=== PATIENT | female | born 1990 | race African-American/Black ===

== ENCOUNTER 2018-08-07 15:41 | Emergency (ER) | payer OTHER ==
[2018-08-07] MEDS ORDERED: Ondansetron PF 4 MG/2 ML Vial ONE (16:04)
[2018-08-07 16:20] LABS: #Basophils 0.1 thou/uL (0.0-0.2); #Eosinphils 0.2 thou/uL (0.0-0.7); #Lymphocytes 2.6 thou/uL (1.20-3.40); #Monocytes 0.5 thou/uL (0.11-0.59); #Neutrophils 4.8 thou/uL (1.40-6.50); %Basophils 1.2 % (0.0-1.0); %Lymphocytes 31.6 % (21.0-51.0); %Neutrophils 58.3 % (42.0-75.0); Hemoglobin 10.8 g/dL (12.0-16.0); Mean Corpuscular HGB CONC 31.9 g/dL (32.0-36.0); Mean Corpuscular Volume 75.2 fL (78.0-98.0); Mean Platelet Volume 9.2 fL (7.4-10.4); Platelet Count 275 thou/uL (130-400); RBC Distribution Width 16.3 % (11.5-14.5); Red Blood Cell (RBC) Count 4.52 mill/uL (4.20-5.40); White Blood Cell (WBC) Count 8.2 thou/uL (4.8-10.8)
[2018-08-07 16:27] LABS: BHCG - Serum POSITIVE (NEGATIVE); Pregs Control Background? CLEAR/WHITE (CLR/WHITE); Pregs Control Bar Appear? YES (CONTROL BAR)
[2018-08-07 16:53] LABS: Bilirubin Negative (Negative); Blood, Urine Negative (Negative); Clarity CLEAR (Clear); Glucose, Urine (Dipstick) Negative (Negative); Leukocyte Moderate (Negative); Nitrite Negative (Negative); Protein, Urine (Dipstick) Negative (Neg-Trace); Specific Gravity, Urine 1.022 (1.002-1.036)
[2018-08-07 16:55] LABS: Bacteria/HPF None Seen HPF (None Seen); Hyaline Casts/LPF 0-3 HYALINE CAST LPF (0-3 Hyaline); Pathc Cast-AUWi Flag 0.14 (0-2.49); Squamous Epithelial 0-3 HPF (0-3)
--- NOTE | 2018-08-07 17:14 | ULT ---
OBSTETRIC SONOGRAM TRANSVAGINAL IMAGING: HISTORY: Early . Pelvic pain. FINDINGS: The gestational sac within the endometrial cavity contains a small yolk sac and pole. Heart mo tion at 128 beats per minute. Measurements correlate with 6 weeks' 4 days' gestational age. No free fluid within the pelvis. Neither ovary is visualized with transabdominal or transvaginal imaging. No solid or cystic masses. No free fluid evident. IMPRESSION: Single viable intrauterine gestation. Estimated gestational age 6 weeks 4 days. No significant abno rmalities demonstrated. POS: [facility]
== END 2018-08-07 17:53 | disposition home or self-care (01) ==
LOC: ERS 15:41
DX: O21.0 Mild hyperemesis gravidarum (principal); O23.41 Unspecified infection of urinary tract in pregnancy, first trimester; F32.9 Major depressive disorder, single episode, unspecified; Z3A.01 Less than 8 weeks gestation of pregnancy
CPT/HCPCS: 36415; 76856; 81003; 81015; 84702; 84703; 85025; 86900; 86901; 87086; 96361; 96374; J2405

== ENCOUNTER 2018-09-14 10:24 | Emergency (ER) | payer OTHER ==
[2018-09-14] MEDS ORDERED: Acetaminophen 500 MG TAB ONE (11:07)
[2018-09-14] MEDS ORDERED: Ondansetron ODT 4 MG TAB ONE (11:07)
== END 2018-09-14 11:16 | disposition home or self-care (01) ==
LOC: ERS 10:24
DX: O9A.211 Injury, poisoning and certain other consequences of external causes complicating pregnancy, first trimester (principal); S39.012A Strain of muscle, fascia and tendon of lower back, initial encounter; O99.89 Other specified diseases and conditions complicating pregnancy, childbirth and the puerperium; R51 Headache; O99.341 Other mental disorders complicating pregnancy, first trimester; F32.9 Major depressive disorder, single episode, unspecified; Z3A.12 12 weeks gestation of pregnancy
CPT/HCPCS: 99283; Q0162

== ENCOUNTER 2018-11-06 13:46 | Outpatient (CLI) | payer OTHER ==
--- NOTE | 2018-11-06 15:01 | ULT ---
FUS OB Complete STANDARD History: [Anatomy, 009.42 supervision of normal with grand multiparity in second trimester] Comparison: Pelvic ultrasound thousand 18 Findings: Real-time grayscale color Doppler and spectral analysis of the gravid uterus was performed transabdominal approach. Single viable intrauterine with average ultrasound age 21 week 1 day with estimated date of delivery March 25, 2019. Estimated weight is 15 ounces, 98th percentile. Cervix is closed and measures 5 cm. Biometry: Biparietal diameter: 4.9 cm, 20 week 6 day Head circumference: 18.48 cm 20 weeks 6 day Abdominal circumference: 16.7 cm 21 week 6 day Femur length: 3.48 cm 21 weeks 0 day Amniotic fluid index: 16 cm. The placenta is anterior and the presentation is variable. No placenta previa. Anatomy: Head, cerebellum, cisterna magna, lateral ventricles, four-chamber heart, stomach, kidneys, cord inse rtion, bladder, spine, lips/nose, upper extremities, lower extremities, three-vessel cord are all nor mal. Impression: Normal single viable intrauterine .
== END 2018-11-06 13:47 | disposition home or self-care (01) ==
LOC: BICULT 13:46
PROVIDERS: ATTEND Family Medicine
DX: O09.42 Supervision of pregnancy with grand multiparity, second trimester (principal)
CPT/HCPCS: 76805

== ENCOUNTER 2019-02-24 23:08 | Day surgery (SDC) | payer OTHER ==
[2019-02-24 23:43] VITALS: BMI 43.4
--- NOTE | 2019-02-25 00:30 | PDOC.FPROB ---
FMR OB H&P: HPI - History of Present Illness Chief Complaint: contrations History of Present Illness: 28 yo @36.1wks presents with contractions off and on for 3 weeks, but they became more frequent and painful since 2200 last night. She wasn't timing them but thinks they were every 15 minutes. She denies LOF, VB, discharge, dysuria. She feels the baby move. FMR OB H&P: History - Past Medical History PMH: borderline DM - OB History OB History: 4 prior term NSVDs 9 lbs 7 ounces 9 lbs 2 ounces 8 lbs 2 ounces 7 lbs 13 ounces - [employer] History [employer] History: hx of chlamydia 1T, treated - Surgical History Sx History: right hand surgery - Social History Social History: denies smoking, alcohol, drug use - Family History Family History: father-htn FMR OB H&P: Medications - Current Home Medications: Medication Instructions Recorded Confirmed Type Pnv No.95/Ferrous Fum/Folic AC 1 tablet PO DAILY 02/24/19 02/24/19 History [Prenavite Tablet] Allergies/Adverse Reactions: Allergies Allergy/AdvReac Type Severity Reaction Status Date / Time No Known Allergies Allergy Unverified 02/24/19 23:39 FMR OB H&P: ROS - Review of Systems General: denies: fever/chills, weight/appetite/sleep changes ENT: denies: nasal congestion, rhinorrhea Cardiovascular: denies: chest pain, palpitation, edema Gastrointestinal: reports: abdominal pain (contractions). denies: indigestion Genitourinary (Female): reports: contractions. denies: incontinence, dysuria, hematuria, polyuria, vaginal discharge, vaginal pain, vaginal bleeding, vaginal pressure Musculoskeletal: denies: pain, stiffness Neurologic: denies: numbness, syncope Integumentary: denies: itching, rash Psychological: denies: depression, anxiety FMR OB H&P: Vital Signs - Maternal Vital signs: BP: 124/85 - Heart Tones Baseline: 130 Variability: moderate Acceleration: present Deceleration: absent Category: category 1 [place] contractions every: 2-10 FMR OB H&P: Physical Exam - Physical Exam General: NAD, awake, alert and oriented HEENT: normocephalic and atraumatic, PERRLA Heart: RRR, normal S1/S2 General: CTAB, no respiratory distress Abdomen: soft, gravid - Pelvic Exam SVE: 350/high FMR OB H&P: A/P - Problem List (1) Third trimester Current Visit: Yes Status: Acute Code(s): Z34.93 - ENCNTR FOR SUPRVSN OF NORMAL PREG, UNSP, THIRD TRIMESTER (2) Irregular contractions Current Visit: Yes Status: Acute Code(s): O62.2 - OTHER UTERINE INERTIA Discussion: Date/Time: 02/25/19 0029 28 yo @36.1wks presents with contractions, rule out labor. #sIUP, with contractions-will monitor via NST for 2 hours and recheck for cervical change. Contraction patter irregular at this time. No prior history of labor. Pt does not need magnesium and not ruptured. Hx of GBS + and , so if we admit this pt, we will provide GBS prophylaxis. Will reassess for steroids if pt develops painful contractions with cervical change. This H&P was discussed with Dr. Kumar and who agrees with the above documentation and plan. Addendum - Attending - Attending Attestation Date/Time: 02/25/19 0116 I personally evaluated the patient and discussed the management with Dr. Jaimes. I agree with the History, Examination, Assessment and Plan documented above.
== END 2019-02-25 04:04 | disposition home or self-care (01) ==
LOC: L&D/OP 23:08
PROVIDERS: ATTEND Family Medicine
DX: O47.03 False labor before 37 completed weeks of gestation, third trimester (principal); O99.89 Other specified diseases and conditions complicating pregnancy, childbirth and the puerperium; R73.03 Prediabetes; O99.820 Streptococcus B carrier state complicating pregnancy; Z3A.36 36 weeks gestation of pregnancy
CPT/HCPCS: 99283

== ENCOUNTER 2019-03-01 20:26 | Day surgery (SDC) | payer OTHER ==
[2019-03-01 21:13] VITALS: BMI 42.7
[2019-03-01] MEDS ORDERED: hydrALAZINE 20 MG/ML VIAL SLOW IVP PRN (21:49)
[2019-03-01] MEDS ORDERED: Betamet Acet/Betamet Na Ph 30 MG/5 ML VIAL ONE (21:57)
[2019-03-01] MEDS ORDERED: Betamet Acet/Betamet Na Ph 30 MG/5 ML VIAL IM SCH (22:00)
[2019-03-02] MEDS ORDERED: Lactated Ringer's 1,000 ML IV SCH (01:45)
[2019-03-02] MEDS ORDERED: Dextrose 5%-Lactated Ringers 1,000 ML IV SCH ×2 (01:45)
--- NOTE | 2019-03-02 07:51 | ULT ---
ULTRASOUND BIOPHYSICAL PROFILE: HISTORY: Nonreactive NST. distress FINDINGS: A single live intrauterine gestation is seen with a heart rate of 133 bpm. The placenta is ante riorly located to the left without evidence of placenta previa. position is vertex. [place] measures 11.3 cm. Cervical length measures 4.2 cm. biometry: tone: 2 breathin movements: 2 Amniotic fluid: 2 IMPRESSION: The ultrasound biophysical profile score is 8 out of 8.
--- NOTE | 2019-03-02 09:56 | PRG ---
DATE OF SERVICE: 03/01/2019 PRIMARY OB: Dr. Kristopher Sampson. CHIEF COMPLAINT: Uterine contractions. HISTORY OF PRESENT ILLNESS: The patient is a 28-year-old, G6, P4 female with an intrauterine at 36 weeks and 1 day, who presents to Labor and Delivery with a several week history of intermittent contractions, which have picked up again this evening few hours prior to presentation. The patient denies leakage of fluid or vaginal bleeding. She denies any recent fever, fall, headache, chest pain, shortness of breath, nausea, vomiting, diarrhea, constipation, hip problems, knee problems, or muscle weakness. She reports a rash on her leg that she has had with this . Denies urinary urgency. The patient was seen recently by Dr. Sampson in the clinic and was noted to be 4 cm dilated at that time. PAST MEDICAL HISTORY: History of prediabetes. PAST SURGICAL HISTORY: She has had right hand surgery. SOCIAL HISTORY: Denies drug, alcohol, or tobacco use. Has a history of chlamydia in the first trimester and was treated. ALLERGIES: NO KNOWN DRUG ALLERGIES. MEDICATIONS: 1. vitamins. 2. Iron. SOCIAL HISTORY: Denies drug, alcohol, or tobacco use. OB HISTORY: The patient has had 4 term spontaneous vaginal deliveries. She reports her last labor was about 6 hours here in the hospital and presented at 6 cm. REVIEW OF SYSTEMS: Per HPI. PHYSICAL EXAMINATION: VITAL SIGNS: Blood pressure 134/83, heart rate of 95, respiratory rate 20, and temperature 98.7. GENERAL: She appears to be in no acute distress. She is alert, oriented, cooperative, and pleasant to interact with. HEAD: Normocephalic and atraumatic. LUNGS: Clear to auscultation bilaterally. HEART: Regular rate and rhythm. ABDOMEN: Gravid and soft. EXTREMITIES: Nontender and nonedematous. CERVIX: Here per nursing staff is 4, 40, and -3 station. heart tracing for abdominal pain and shows a baseline in the 120s with moderate long-term variability, positive 15 x 15 accelerations. Contractions, irregular and grouped about every 10 minutes apart. These contractions persisted through the night. At one point, there was some concern about the status as we were not getting regular accelerations any longer. BPP was performed, and the patient was noted to have a BPP of 8/8. Repeat cervical exam this morning was unchanged approximately 10 hours after presentation. ASSESSMENT AND PLAN: The patient is a 28-year-old multiparous female with an intrauterine at 36 weeks with advanced cervical dilation that has been present for a while. She has had no change with approximately 10 hours. The patient did sleep some last night through the contractions. Given the patient's status and risk for early delivery, the patient has received steroids during her stay. The patient has been discharged to home. She has an appointment on Tuesday with Dr. Sampson, which we have encouraged that she keep. The patient has been given labor precautions. Fetus is reassuring by BPP and heart tracing. Of note, the patient is GBS positive. Job ID: [id number]
== END 2019-03-02 07:40 | disposition home health service (06) ==
LOC: L&D/OP 20:26
PROVIDERS: ATTEND Family Medicine
DX: O47.03 False labor before 37 completed weeks of gestation, third trimester (principal); Z3A.36 36 weeks gestation of pregnancy; Z79.899 Other long term (current) drug therapy
CPT/HCPCS: 76819; 96360; 96361; 96372; 99283; J0702

== ENCOUNTER 2019-03-07 00:53 | Inpatient (IN) | payer OTHER ==
[2019-03-07 01:43] VITALS: BMI 42.7
[2019-03-07] MEDS ORDERED: hydrALAZINE 20 MG/ML VIAL SLOW IVP PRN ×2 (02:16→08:54)
[2019-03-07] MEDS ORDERED: Lidocaine 1% (PF) 30 ML VIAL SC PRN (02:16)
[2019-03-07] MEDS ORDERED: Butorphanol Tartrate 1 MG/ML VIAL SLOW IVP PRN (02:16)
[2019-03-07] MEDS ORDERED: Ibuprofen 800 MG TAB PO PRN (02:16)
[2019-03-07] MEDS ORDERED: HYDROcodone/Acetaminophen 5/325 mg Tablet PO PRN ×4 (02:16→08:54)
[2019-03-07] MEDS ORDERED: Promethazine HCl 25 MG/ML VIAL IM PRN (02:16)
[2019-03-07] MEDS ORDERED: NS / Oxytocin 40 units/1000ml 1,000 ML IV PRN (02:16)
[2019-03-07] MEDS ORDERED: Ondansetron PF 4 MG/2 ML Vial IVP PRN ×2 (02:16→08:54)
--- NOTE | 2019-03-07 02:19 | PDOC.LDHP ---
Labor and Delivery H&P HPI: Patient of Dr Sampson CC: CTX Time: 216 28 yo at 37 weeks 4 days with spont onset of laborL, no LOF, no VB. States reg CTX. Review of Systems: complete ROS completed and as per HPI Current gestational age (weeks): 37 (4days) Due date: 03/24/19 Grav: 6 Para: 4 OB History Details: all SVDs,HX blood transfusiion in past for "anemia" Current complications: none Abnormal US findings: No Past Medical History: HX Chlamydia Current medications: pre- vitamins Previous surgical history: other (Hand surgery) Allergies/Adverse Reactions: Allergies Allergy/AdvReac Type Severity Reaction Status Date / Time No Known Allergies Allergy Verified 03/07/19 01:41 Social history: none - Physical Exam Vital signs reviewed and normal: yes (127/78 86 18 100%) General: NAD Heart: RRR Lungs: CTAB Abdomen: gravid Extremeties: no edema FHT: category 1 [place] contractions every: irregular but present - Vaginal Exam cm dilated: 5 Effacement: 50% Station: -1 - Assessment L&D Assessment: term patient in labor (Ear[place] term, GBS pos) - Plan Plan: admit to L&D, labor augmentation if indicated, GBS antibiotic prophylaxis , informed consent obtained, anesthesia consult for pain management, other (She states that after last labor epidural, she had numbness for 2 months...she prefers not to have an PRABHJOT. Dr Sampson to be notified.)
--- NOTE | 2019-03-07 02:22 | PDOC.EVN ---
Event Note - Event Note Event Note: Adrián notified by [employer]
[2019-03-07] MEDS ORDERED: Lactated Ringer's 1,000 ML IV SCH (02:30)
[2019-03-07] MEDS ORDERED: Penicillin G Potassium 5 MILL.UNITS in Sodium Chloride 0.9% 100 ML IVPB SCH (02:30)
[2019-03-07 04:33] LABS: Hemoglobin 9.2 g/dL (12.0-16.0); Mean Corpuscular HGB CONC 32.3 g/dL (32.0-36.0); Mean Corpuscular Hemoglobin 21.4 pg (27.0-31.0); Mean Corpuscular Volume 66.3 fL (78.0-98.0); Mean Platelet Volume 6.4 fL (7.4-10.4); Platelet Count 244 thou/uL (130-400); RBC Distribution Width 17.2 % (11.5-14.5); White Blood Cell (WBC) Count 11.6 thou/uL (4.8-10.8)
[2019-03-07 05:11] LABS: HBSAg Index 0.25 S/CO (0-0.99); HIV (1/2) Antibody/Antigen Non-Reactive (NonReactive); Hep B Surf Ag Non-Reactive S/CO (NonReactive)
[2019-03-07 05:12] LABS: Syphilis Antibody Nonreactive (Nonreactive); Syphilis Antibody Index 0.03 S/CO (<1.00 Non-Reactive)
--- NOTE | 2019-03-07 06:02 | PDOC.EVN ---
Event Note - Event Note Event Note: Called to bedside at 0555 to eval patient for VB Loc: [id number] I was called for VB...I assessed the patient and found her CX to be 8/80/-1. I suspect possible marginal placental separation vs CX change. I performed AROM to place FSE. Clear fluid noted. FSE placed without issue. Baby is cephalic. FHTs are still WNL I have ordered a T&C just in case this progresses. Watch closely. Dorothea and Gloria in room.
[2019-03-07] MEDS ORDERED: Carboprost 250 MCG/ML AMP ONE (06:10)
[2019-03-07] MEDS ORDERED: Methylergonovine 0.2 MG/ML VIAL ONE (06:10)
[2019-03-07] MEDS ORDERED: Misoprostol 200 MCG TAB ONE ×4 (06:11)
[2019-03-07] MEDS ORDERED: Penicillin G 2.5 MILL.units 2.5 MILL.UNITS in Premix Bag 1 BAG IVPB SCH (07:00)
[2019-03-07] MEDS ORDERED: diphenhydrAMINE 25 MG CAP PO PRN (08:54)
[2019-03-07] MEDS ORDERED: Benzocaine-Menthol 82.5 ML CAN TOP PRN (08:54)
[2019-03-07] MEDS ORDERED: Milk Of Magnesia 30 ML UDCUP PO PRN (08:54)
[2019-03-07] MEDS ORDERED: Bisacodyl 10 MG SUPP PR PRN (08:54)
[2019-03-07] MEDS ORDERED: Lanolin Ointment 7 GM TUBE TOP PRN (08:54)
[2019-03-07] MEDS ORDERED: NS / Oxytocin 40 units/1000ml 1,000 ML IV SCH (08:54)
[2019-03-07] MEDS ORDERED: Preparation H Ointment 28 GM TUBE PR PRN (08:54)
[2019-03-07] MEDS: Docusate Calcium (SURFAK) 240 MG CAP PO SCH ×2 (11:43→21:42)
[2019-03-07] MEDS: Ibuprofen 800 MG TAB PO SCH ×2 (14:34→21:42)
[2019-03-07] MEDS: Ferrous Sulfate 325 MG TAB PO SCH (17:59)
[2019-03-08] MEDS: Ibuprofen 800 MG TAB PO SCH ×3 (05:26→21:41)
[2019-03-08 07:26] LABS: Mean Corpuscular HGB CONC 31.5 g/dL (32.0-36.0); Mean Corpuscular Hemoglobin 20.5 pg (27.0-31.0); Mean Corpuscular Volume 65.1 fL (78.0-98.0); Mean Platelet Volume 8.3 fL (7.4-10.4); Platelet Count 185 thou/uL (130-400); RBC Distribution Width 17.1 % (11.5-14.5); Red Blood Cell (RBC) Count 3.89 mill/uL (4.20-5.40); White Blood Cell (WBC) Count 12.4 thou/uL (4.8-10.8)
[2019-03-08] MEDS: Ferrous Sulfate 325 MG TAB PO SCH ×2 (08:58→18:23)
[2019-03-08] MEDS: Docusate Calcium (SURFAK) 240 MG CAP PO SCH ×2 (08:58→21:41)
[2019-03-08] MEDS ORDERED: Adacel (T-DAP) 0.5 ML SYRINGE IM ONE (09:00)
[2019-03-09] MEDS: Ibuprofen 800 MG TAB PO SCH ×2 (06:03→16:21)
[2019-03-09] MEDS: Docusate Calcium (SURFAK) 240 MG CAP PO SCH (09:23)
[2019-03-09] MEDS: Ferrous Sulfate 325 MG TAB PO SCH (09:23)
[2019-03-09 14:50] VITALS: BP 133/71; TEMP 98.6
== END 2019-03-09 16:05 | disposition home or self-care (01) | DRG 807 ==
LOC: L&D/OP 00:53 → L&D 01:56 → 3SW 09:47
PROVIDERS: ADMIT Family Medicine; ATTEND Family Medicine
PROC: 10E0XZZ Delivery of Products of Conception, External Approach (ICD-10-PCS; principal; 2019-03-07)
PROC: 10907ZC Drainage of Amniotic Fluid, Therapeutic from Products of Conception, Via Natural or Artificial Opening (ICD-10-PCS; 2019-03-07)
DX: O99.824 Streptococcus B carrier state complicating childbirth (principal); Z37.0 Single live birth; Z3A.37 37 weeks gestation of pregnancy
CPT/HCPCS: 36415; 85027; 86780; 86850; 86900; 86901; 87340; 87389; 99285; J2001; J2210; J2540; J3490

== ENCOUNTER 2019-11-14 09:00 | Emergency (ER) | payer OTHER, SELFPAY | END 2019-11-14 09:47 | disposition home or self-care (01) | LOC: ERS 09:00 | DX: K02.9 Dental caries, unspecified (principal); F32.9 Major depressive disorder, single episode, unspecified | CPT/HCPCS: 99282 ==